=== PATIENT | male | born 1965 | race American Indian/Alaskan Native ===

== ENCOUNTER 2016-10-17 09:13 | Outpatient (CLI) | payer OTHER ==
--- NOTE | 2016-10-17 10:15 | Ultrasound Report ---
ULTRASOUND RENAL INDICATION: Gross hematuria. COMPARISON: None similar at this institution. FINDINGS: Renal sonography suggests top normal/borderline renal cortical echogenicity. Grossly preserved contours. No hydronephrosis. Right kidney measures 10.8 x 5 x 6.2 cm with cortical thickness of 1.7 cm. Left kidney estimated at 9.8 x 5.1 x 5.2 cm with cortical thickness of 1.6 cm. Urinary bladder suboptimally distended and assessed, though grossly unremarkable, in so far seen. CONCLUSION: No acute renal sonographic abnormality, as described. Please correlate. Thank you for the opportunity to participate in this patient's care.
== END 2016-10-17 09:14 | disposition home or self-care (01) ==
LOC: US 09:13
PROVIDERS: ATTEND Internal Medicine
DX: R31.0 Gross hematuria (principal); N32.89 Other specified disorders of bladder
CPT/HCPCS: 76770